=== PATIENT | male | born 1960 | race Caucasian/White ===

== ENCOUNTER 2020-06-11 07:33 | Outpatient (REF) | payer OTHER, SELFPAY | END 2020-06-11 07:34 | disposition home or self-care (01) | LOC: HO.LAB 07:33 | PROVIDERS: Visit Provider Internal Medicine | DX: Z20.822 Contact with and (suspected) exposure to COVID-19 (principal) | CPT/HCPCS: 36415; C9803; U0003 ==

== ENCOUNTER 2020-07-02 07:40 | Outpatient (REF) | payer OTHER, SELFPAY | END 2020-07-02 07:41 | disposition home or self-care (01) | LOC: HO.LAB 07:40 | PROVIDERS: PCP Student in an Organized Health Care Education/Training Program; Visit Provider Internal Medicine | DX: Z20.822 Contact with and (suspected) exposure to COVID-19 (principal) | CPT/HCPCS: 36415; C9803; U0003; U0005 ==

== ENCOUNTER 2020-09-17 08:35 | Outpatient (REF) | payer OTHER, SELFPAY ==
[2020-09-17 08:56] LABS: COVID-19 Test Negative (Negative)
== END 2020-09-17 08:36 | disposition home or self-care (01) ==
LOC: HO.LAB 08:35
PROVIDERS: Visit Provider Internal Medicine
DX: Z20.822 Contact with and (suspected) exposure to COVID-19 (principal)
CPT/HCPCS: 36415; 87635; C9803

== ENCOUNTER → 2022-08-07 14:54 | Outpatient (BNVA) | payer SELFPAY | PROVIDERS: PCP Student in an Organized Health Care Education/Training Program; Visit Provider Physician Assistant | DX: Z02.79 Encounter for issue of other medical certificate (principal) ==

== ENCOUNTER → 2023-09-15 12:58 | Outpatient (BNVA) | payer SELFPAY | PROVIDERS: PCP Student in an Organized Health Care Education/Training Program; Visit Provider Physician Assistant Medical | DX: Z02.79 Encounter for issue of other medical certificate (principal) ==

== ENCOUNTER 2023-11-30 10:35 | Outpatient (REF) | payer SELFPAY ==
[2023-11-30 14:30] LABS: Alanine Aminotransferase 30 U/L (0-40); Albumin Level 3.9 g/dL (3.5-5.0); Alkaline Phosphatase 50 U/L (39-117); Anion Gap 9 (12-20); Aspartate Amino Transferase 25 U/L (5-37); Bilirubin Direct 0.2 mg/dL (0.0-0.5); Bilirubin Total 0.5 mg/dL (0.0-1.0); Blood Urea Nitrogen 13 mg/dL (9-16); Calcium 8.8 mg/dL (8.4-10.2); Carbon Dioxide 26 mmol/L (22-29); Chloride 107 mmol/L (96-108); Cholesterol 122 mg/dL (<200); Estimated Glomerular Filt Rate > 60; Glucose Random 98 mg/dL (60-115); HDL Cholesterol 42 mg/dL (>40); LDL Cholesterol Calculated 72 mg/dL (<100); Potassium 4.3 mmol/L (3.3-5.1); Sodium 138 mmol/L (135-145); Triglycerides 42 mg/dL (<150)
== END 2023-11-30 10:36 | disposition home or self-care (01) ==
LOC: HO.CHCLDS 10:35
PROVIDERS: Visit Provider Student in an Organized Health Care Education/Training Program
DX: I10 Essential (primary) hypertension (principal); R60.0 Localized edema
CPT/HCPCS: 36415; 80048; 80061; 80076

== ENCOUNTER 2024-08-15 09:03 | Outpatient (REF) | payer OTHER, SELFPAY ==
--- OUTSIDE RECORDS SUMMARY | 2024-08-15 09:59 | XMS_ITS | Clinical Summary ---
Author Organization [facility] ity Address [address] [place] [address] Care Team Providers Care Sheep Farm Manager Name Role Phone Unavailable Primary Care Provider Unavailabl e Social History Tobacco Use Types Packs/Day Years Used Date Smoking Tobacco: Never Assessed Sex and Gender Information Value Date Recorded Sex Assigned at Not on file Legal Sex Male 3:13 PM EST Gender Identity Not on file Sexual Orientation Not on file Plan of Treatment Health Maintenance Due Date Last Done Comments DTaP,Tdap,and Td Vaccines (1 - Tdap) 1977 Pneumococcal Vaccine: 50+ Ye ars (1 of 1 - PCV) 2008 Zoster Vaccines (1 of 2) 2008 Abdominal Aortic Aneurysm (A AA) Screen 04/15/2022 Cholesterol Screening (Lipid Panel) 04/15/2022 Colorectal Cancer Screening: Colonoscopy 04/15/2022 Depression Screening 04/15/2022 Hepatitis C Screening 04/15/2022 Social Influencers of Health Screening 04/15/2022 Falls Risk Assessment 07/27/2023 COVID-19 Vaccine ( - 2023-2 5 season) 2024 Influenza Vaccine (#1) 2024 RSV Immunization Patients 60 + Years Old (1 - 1-dose 75+ series) 2033 HIB Vaccines Aged Out No longer eligi ble based on patient's age to complete this topic HPV Vaccines Aged Out No longer eligi ble based on patient's age to complete this topic Hepatitis A Vaccines Aged Out No long er eligible based on patient's age to complete this topic Hepatitis B Vaccines Aged Out No long er eligible based on patient's age to complete this topic IPV Vaccines Aged Out No longer eligi ble based on patient's age to complete this topic MMR Vaccines Aged Out No longer eligi ble based on patient's age to complete this topic Meningococcal ACWY Vaccine Aged Out N o longer eligible based on patient's age to complete this topic Meningococcal B Vacine Aged Out No lo nger eligible based on patient's age to complete this topic RSV Immunization Patients Un ross 20 months Aged Out No longer eligible b ased on patient's age to complete this topic Varicella Vaccines Aged Out No longer eligible based on patient's age to complete this topic
--- OUTSIDE RECORDS SUMMARY | 2024-08-15 09:59 | XMS_ITS | Encounter Summary ---
Author Organization [employer] Address [address] [facility] [address] [place] [address] Care Team Providers Care Professor Of Voice Name Role Phone Lorena Woody MD Primary Care Provider [phone] Encounter Details Date Type Department Care Team ([facility] st Contact Info) Description 09/28/2022 Orders Only [facility] & PEDS [address] [place] [address] Shanelle Daily LPN Social History Tobacco Use Types Packs/Day Years Used Date Smoking Tobacco: Never Assessed Sex and Gender Information Value Date Recorded Sex Assigned at Male 03/16/2022 10:29 AM EDT Legal Sex Male 10:29 AM EDT Gender Identity Male 03/16/2022 10:29 AM EDT Sexual Orientation Choose not to disclose 2021 10:29 AM EDT documented as of this encounter Plan of Treatment Not on file documented as of this encounter Visit Diagnoses Not on filedocumented in this encounter Care Teams Professor Of Voice Relationship Specialty Start Date End Date Lorena Woody MD [address] [place] [id number] PCP - General Family Medicine 10/03/15 documented as of this encounter
--- OUTSIDE RECORDS SUMMARY | 2024-08-15 09:59 | XMS_ITS | Encounter Summary ---
Author Organization [employer] Address [address] [facility] 7t [place] [address] Care Team Providers Care Weaving Teacher Name Role Phone Lorena Woody MD Primary Care Provider [phone] Reason for Visit * Reason Comments Annual Exam Encounter Details Date Type Department Care Team ([facility] st Contact Info) Description 08/15/2024 8:30 AM EDT Office Visit [facility] MED & PEDS [address] [place], [place] [phone] Lorena oWody MD [address] [place] [address] Primary hypertension (Primary Dx); Encounter for annual wellness visit Social History Tobacco Use Types Packs/Day Years Used Date Smoking Tobacco: Never Smokeless Tobacco: Never Tobacco Cessation:Counseling Given: Not Answered Alcohol Use Standard Drinks/Week Comments Never 0 (1 standard drink = 0.6 oz pur e alcohol) Depression Answer Date Recorded Patient Health Questionnaire-9 Score 6 11/30/2023 Patient Health Questionnaire-9 Score 6 11/30/2023 Last PHQ-9: Questionnaire Data Not on file 0 11/30/2023 Housing Stability Answer Date Recorded What is your housing situation today? I have gaurav figueredo 11/30/[address] you li ve. Do you have problems with any of the following? None of the above 11/30/2023 Food Insecurity Answer Date Recorded Within the past 12 months, y ou worried that your food would run out before you got money to buy more: Never True 11/30/2023 Within the past 12 months,th e food you bought just didn't last and you didn't have enough money to get more: Never True Transportation Answer Date Recorded In the past 12 months, has l ack of transportation kept you from medical appts, meetings, work or from getting things needed for daily living? No 11/30/2023 Utilities Answer Date Recorded In the past 12 months, has t he electric, gas, oil or water company threatened to shut off services in your home? No 11/30/2023 Depression Answer Date Recorded Patient Health Questionnaire-2 Score 3 11/30/2023 Internet Access Answer Date Recorded Internet Access Q1 No 08/15/2024 Internet Access Q2 I do not want or need it 05/2024 Sex and Gender Information Value Date Recorded Sex Assigned at Male 03/16/2022 10:29 AM EDT Legal Sex Male 10:29 AM EDT Gender Identity Male 03/16/2022 10:29 AM EDT Sexual Orientation Choose not to disclose 2021 10:29 AM EDT documented as of this encounter Last Filed Vital Signs Vital Sign Reading Time Taken Comments Blood Pressure 140/81 08/15/2024 8:52 AM EDT Pulse 75 08/15/2024 8:52 AM EDT Temperature 36.6 ??C (97.8 ??F) 08/15/2024 8:52 AM ED T Respiratory Rate 18 08/15/2024 8:52 AM EDT Oxygen Saturation - - Inhaled Oxygen Concentration - - Weight 70.3 kg (155 lb) 08/15/2024 8:52 AM EDT Height 164.5 cm (5' 4.75 ) 08/15/2024 8:52 AM ED T Body Mass Index 25.99 08/15/2024 8:52 AM EDT documented in this encounter Plan of Treatment Scheduled Orders Name Type Priority Associated Diagnoses Orde r Schedule Basic Metabolic Panel Lab Routine Primary hypertension Expected: 08/15/2024 (Approximate), Expires: 08/15/2025 Lipid Panel, Standard Lab Routine Primary hypertension Expected: 08/15/2024 (Approximate), Expires: 08/15/2025 Hepatic Function Panel Lab Routine Primary hypertension Expected: 08/15/2024 (Approximate), Expires: 08/15/2025 documented as of this encounter Visit Diagnoses Diagnosis Primary hypertension- Primary Unspecified essential hypertension Encounter for annual wellness visit documented in this encounter Additional Health Concerns Assessment Noted Time PHQ-9 Depression Total Score: 6 11/30/19 24 9:59 AM EDT documented as of this encounter Care Teams Weaving Teacher Relationship Specialty Start Date End Date Lorena Woody MD [address] [place] [id number] PCP - General Family Medicine 10/03/15 documented as of this encounter
--- OUTSIDE RECORDS SUMMARY | 2024-08-15 09:59 | XMS_ITS | Encounter Summary ---
Author Organization [employer] Address [address] [facility] [address] [place] [address] Care Team Providers Care Bioinformatics Developer Name Role Phone Lorena Woody MD Primary Care Provider [phone] Reason for Visit * Reason Onset Date Comments Chart prep 08/14/2024 Encounter Details Date Type Department Care Team ([facility] st Contact Info) Description 08/14/[address] [facility] MED & PEDS [address] [place], [place] [phone] Lorena Woody MD [address] [place] [address] Chart prep Social History Tobacco Use Types Packs/Day Years Used Date Smoking Tobacco: Never Smokeless Tobacco: Never Alcohol Use Standard Drinks/Week Comments Never 0 [...] AM EDT documented as of this encounter Miscellaneous Notes * Telephone Encounter - Danisha Zendejas [place] - 08/14/2024 11:00 AM EDT Chart Prep Labs: done Images: done Vaccines due: yes Referrals: complete Screenings: colonoscopy , STI screening Overdue care gaps: documented in this encounter Plan of Treatment Not on file documented as of this encounter Visit Diagnoses Not on filedocumented in this encounter Additional Health Concerns Assessment Noted Time PHQ-9 Depression Total Score: 6 11/30/19 24 9:59 AM EDT documented as of this encounter Care Teams Bioinformatics Developer Relationship Specialty Start Date End Date Lorena Woody MD [address] [place] [id number] PCP - General Family Medicine 10/03/15 documented as of this encounter
--- OUTSIDE RECORDS SUMMARY | 2024-08-15 09:59 | XMS_ITS | Encounter Summary ---
Author Organization [employer] Address [address] [facility] 7[address] [place] [address] Care Team Providers Care Tile And Marble Setter Name Role Phone Lorena Woody MD Primary Care Provider [phone] Encounter Details Date Type Department Care Team (Latest Contact Info) Description 08/15/2024 Travel Social History Tobacco Use Types Packs/Day Years [...] documented as of this encounter Care Teams Tile And Marble Setter Relationship Specialty Start Date End Date Lorena Woody MD [address] [place] [address] PCP - General Family Medicine 10/03/15 documented as of this encounter
--- OUTSIDE RECORDS SUMMARY | 2024-08-15 09:59 | XMS_ITS | Clinical Summary ---
Author Organization [employer] Address [address] [facility] [address]t [place] [address] Care Team Providers Care Corporate Training Manager Name Role Phone Lorena Woody MD Primary Care Provider [phone] Allergies No known active allergies Medications ibuprofen 800 MG tablet TAKE 1 TABLET BY MOUTH 3 TIMES DAILY. 90 tablet 4 Active lisinopril 20 MG tablet Take 1 tablet (20 mg) by mouth Once per day. 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 Assessment & Plan (10/14/2022 10:45 AM EDT): Patient with positive quantiferon test, cxr was negative, currently asymptomatic, will refer to tb clinic Encounters Date Type Department Care Team Description 08/15/2024 8:30 AM EDT Office Visit [facility] MED & PEDS [address] [place] [address] Lorena Woody MD Primary hypertension (Primary Dx); Encounter for annual wellness visit 08/15/2024 Travel 08/14/2024 Telephone [facility] MED & PEDS [address] [place] [address] Lorena Woody MD Chart prep 08/08/2024 Patient Outreach [facility] [address] [place], [place] [phone] Lorena Woody MD Pre-visit Planning (Pre visit planning unable to LVM ) 07/19/2024 Patient Outreach [facility] [address] [place] [address] Lornea Woody MD Pre-visit Planning (SDOH was completed on 06/06/2024) 06/28/2024 Refill [facility] & PED[facility] [address] [place] [address] Lorena Woody MD 06/14/2024 Patient Outreach [facility] [address] [place] [address] Lorena Woody MD Pre-visit Planning (SDOH was completed on 06/06/2024) 06/06/2024 Patient Outreach [facility] [address] [place] [address] Lorena Woody MD Pre-visit Planning (SDOH negative. Tobacco screening negative. ) from Last 3 Months Immunizations Name Administration Dates Next Due Influenza Injectable Quadriv alant Preservative Free IIV4 MDCK 04/14/2023 Tdap 09/28/2017 Social History Tobacco Use Types Packs/Day Years [...] not to disclose 2021 10:29 AM EDT Last Filed Vital Signs Vital Sign Reading [...] Mass Index 25.99 08/15/2024 8:52 AM EDT Plan of Treatment Health Maintenance Due Date Last Done Comments CT Colonography 1958 FIT DNA/Cologuard 1958 FIT 1958 FOBT 1960 Sigmoidoscopy 1958 Hepatitis C Screening 1976 Pneumococcal Vaccine: 50+ Years (1 of 1 - PCV) 2008 Zoster Vaccines (1 of 2) 2008 Colonoscopy 04/24/2024 04/24/2019 Colorectal Cancer Screening 04/24/2024 Influenza Vaccine (#1) 2024 3, 02/06/2022, 01/24/2021, Additional history exists Postponed from 01/16/2024 (Patient Refused) Alcohol/Substance Use Screening 11/29/2024 11/30/2023 Depression Screening 11/29/2024 11/30/2023, 11/30/19 COVID-19 Vaccine ( season) 2025 05/05/2021, 09/04/2020, 08/07/2020 Postponed from 01/16/2024 (Patient Refused) SDOH Screening 08/15/2025 08/15/2024 Tobacco Screening 08/15/2025 08/15/2024 DTaP/Tdap/Td Vaccines (2 - Td or Tdap) 09/29/2027 09/28/2017 Lipid Panel 11/29/2028 11/30/2023, 01/16, 07/22/2020 RSV Patients and Patients Aged 60 years or older (1 - 1-dose 75+ series) 2033 HIB [...] patient's age to complete this topic Meningococcal Vaccine Aged Out No noman haim eligible based on patient's age to complete this topic RSV under 20 months Aged Out No longe r eligible based on patient's age to complete this topic Rotavirus Vaccines Aged Out No longer eligible based on patient's age to complete this topic Procedures Procedure Name Priority Date/Time Associated Diagnosis Comments LIPID PANEL, STANDARD Routine 11/30/2023 12:00 AM EDT Primary hypertension Bilateral leg edema HM COLONOSCOPY Routine 04/24/2019 from Last 3 Months or Most Recently Relevant to Health Maintenance Results * Lipid Panel, Standard (11/30/2023 12:00 AM EDT) Triglycerides 42 <150 mg/dL [facility] Comment:Desirable Triglyceri de: less than 150 mg/dLBorderline High Triglyceride 150-199 mg/dLHigh Triglyceride: 200-499 mg/dLVery High Triglyceride: greater than or equal to 5OO mg/dL Cholesterol 122 <200 mg/dL [facility] Comment:Desirable Cholestero l: less than 200 mg/dLBorderline High Cholesterol: 200-239 mg/dLHigh Cholesterol: greater than 239 mg/dL LDL Cholesterol Calculated 72 <100 mg/dL [facility] Comment:Desirable LDL: less than 100 mg/dLNear Optimal/Above Optimal LDL: 110- 129 mg/dLBorderline High LDL: 130-159 mg/dLHigh LDL: 160-189 mg/dLVery High LDL: greater than or equal to 190 mg/dL HDL Cholesterol 42 >40 mg/dL [facility] Comment:Desirable HDL: great er than 40 mg/dL Note: This HDL assay may give artificially low results in patients with liver disease. Blood Venous blood specimen / Unknown 11/30/2023 11/30/2023 Lorena Woody MD LAB BLOOD ORDERABLES Final Resul t [facility] [address] [place] [phone] [phone] * Colonoscopy (04/24/2019) Colonoscopy Normal Normal Historical Provider HEALTH MAINTENANCE Final Result from Last 3 Months or Most Recently Relevant to Health Maintenance Insurance [facility] [id number] Care Teams Corporate Training Manager Relationship Specialty Start Date End Date Lorena Woody MD [address] [place] [id number] PCP - General Family Medicine 10/03/15
[2024-08-15 17:15] LABS: Alanine Aminotransferase 37 U/L (0-40); Alkaline Phosphatase 49 U/L (39-117); Anion Gap 8 (12-20); Aspartate Amino Transferase 46 U/L (5-37); Bilirubin Direct 0.3 mg/dL (0.0-0.5); Bilirubin Total 0.8 mg/dL (0.0-1.0); Blood Urea Nitrogen 22 mg/dL (9-16); Calcium 9.1 mg/dL (8.4-10.2); Carbon Dioxide 26 mmol/L (22-29); Chloride 108 mmol/L (96-108); Cholesterol 144 mg/dL (<200); Estimated Glomerular Filt Rate > 60; Glucose Random 87 mg/dL (60-115); HDL Cholesterol 46 mg/dL (>40); LDL Cholesterol Calculated 86 mg/dL (<100); Sodium 138 mmol/L (135-145); Total Protein 7.3 g/dL (6.5-8.0); Triglycerides 62 mg/dL (<150)
== END 2024-08-15 09:04 | disposition home or self-care (01) ==
LOC: HO.CHCLDS 09:03
PROVIDERS: Visit Provider Student in an Organized Health Care Education/Training Program
DX: I10 Essential (primary) hypertension (principal)
CPT/HCPCS: 36415; 80048; 80061; 80076

== ENCOUNTER 2025-01-17 08:03 | Outpatient (AMB) | payer OTHER, SELFPAY ==
--- NOTE | 2025-01-17 08:07 | A.OFFVIS_ITS ---
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 States his is locking when making a fist or with heavy lifting States this is painful. Patient states locking of his finger started about 3 weeks and has not improved. Denies numbness or tingling. States he would like to have an injection. Patient states he take medication for insomnia and is being well monitored by his doctor. Allergies No Known Allergies Allergy (Verified 01/17/25 08:15) HPI HPI RESEARCH PROGRAM COORDINATOR-Lt hand 4th digit trigger finger: Details: Shivam is a 64 year old right hand dominant man who presents for painful locking of his left ring finger. He complains of painful locking & catching of the left ring finger, onset ~3 weeks. He finds this occurring with heavy lifting or gripping activities. He denies any numbness or tingling. He denies any prior treatment options. 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 Review of Systems Const All systems reviewed & are unremarkable except as noted in HPI and below Physical Exam Vital Signs: BMI result Body Mass Index 25.8 Const General: cooperative, healthy appearing and no acute distress Orientation/consciousness: patient oriented x3 HEENT Head: Yes normocephalic and Yes atraumatic Eyes EOM: EOMs intact bilaterally Resp Effort & Inspection: normal respiratory effort and able to speak in complete sentences Cardio Jugular venous distension: no JVD Skin General skin exam: turgor normal Rashes: no rashes Neuro General: patient oriented x3 Extrem Other: Evaluation of Left Upper Extremity: The patient is alert, oriented, and in no acute distress Neuro: Median, Ulnar, Radial nerves motor and sensory intact and sensation is normal to the tips of all digits Vascular: Cap refill brisk ROM: He can make a fist and extend all his digits Visible & palpable locking & catching of the ring finger Tender over the ring finger a1 joana Skin: No lacerations or abrasions. General: No Ecchymosis. No Erythema or evidence of infection. Psych Appearance: grossly normal Affect: normal affect Attitude: cooperative Office Procedures AMB Fracture Care Details: No fracture, injection Fracture Billing Code: Fracture Billing Code Assessment & Plan Assessment & Plan (1) Trigger finger, left ring finger: Code(s): M65.342 - Trigger finger, left ring finger Category: Medical Plan Assessment & Plan: 1. Left ring finger trigger finger I educated him about this condition I discussed operative and non-operative treatment options The patient would like to proceed with an injection Injection #1: The risks and benefits of a steroid injection including but not limited to risk of damage to blood vessels, nerves, tendons, infection, skin bleaching, failure to improve symptoms, increased pain, and possible need for further injections or other intervention were discussed with the patient and the patient wishes to proceed with the steroid injection. Once consent was obtained, I sterilely prepped the area over the A1 joana of the flexor tendon sheath of the Left ring finger. I then injected the flexor tendon sheath with a combination of 1 mL of dexamethasone (4mg/ml), and 1% lidocaine. The patient tolerated the procedure well with no complications. If the patient continues to have locking and catching 4-6 weeks following this injection, they may call to schedule appointment to discuss alternative treatment options Follow-up prn Scribed for Mirian Mckenna MD by Stepan Wall medical device assembler, on 01/17/25 at 8:55 AM, EST. Coding Level of Care Code New Pt Level 4 (54738) Diagnoses Trigger finger, left ring finger M65.342 CPT Codes Fracture Care - Fracture Billing Code: Fracture Billing Code ([id number])
[2025-01-17 08:12] VITALS: BMI 25.8
--- OUTSIDE RECORDS SUMMARY | 2025-01-17 08:22 | XMS_ITS | Encounter Summary ---
Author Organization [employer] [facility] Address [address] [facility] 7t [place] [address] Care Team Providers Care Network Program Manager Name Role Phone Lorena Woody MD Primary Care Provider [phone] Encounter Details Date Type Department Care Team (Late st Contact Info) Description 09/28/2022 Orders Only [facility] MED & PEDS [address] [place] [address] Shanelle Daily LPN Social History Tobacco Use Types Packs/Day Years Used Date Smoking Tobacco: Never Assessed Sex and Gender Information Value Date Recorded Sex Assigned at Male 03/16/2022 10:29 AM EDT Legal Sex Male 10:29 AM EDT Gender Identity Male 03/16/2022 10:29 AM EDT Sexual Orientation Choose not to disclose 2021 10:29 AM EDT documented as of this encounter Plan of Treatment Upcoming Encounters Date Type Department Care Team (Late st Contact Info) Description 02/14/2025 8:30 AM EDT Office Visit [facility] PED[facility] [address] [place] [address] Lorena Woody MD [address] [place] [address] documented as of this encounter Visit Diagnoses Not on filedocumented in this encounter Care Teams Network Program Manager Relationship Specialty Start Date End Date Lorena Woody MD [address] [place] [phone] PCP - General Family Medicine 10/03/15 documented as of this encounter
--- OUTSIDE RECORDS SUMMARY | 2025-01-17 08:23 | XMS_ITS | Clinical Summary ---
Author Organization [employer] Address [address] [facility] 7[address] [place] [address] Care Team Providers Care Inspector [employer] Name Role Phone Lorena Woody MD Primary Care Provider [phone] Allergies No known active allergies Medications ibuprofen 800 MG tablet TAKE 1 TABLET BY MOUTH 3 TIMES DAILY. 90 tablet 08/12/2023 Active lisinopril 20 MG tablet Take 1 tablet (20 mg) by mouth Once per day. 90 tablet 3 08/15/2024 Active cetirizine (ZyrTEC) 10 MG tablet Take 1 tablet by mouth at bed time. 02/06/2022 Active hydrOXYzine HCl (Atarax) 50 MG tablet Take 1 tablet by mouth every 8 (eight) hours if needed for anxiety. 12/15/2024 Active Active Problems Problem Noted Date Diagnosed Date Trigger ring finger of left hand 12/20/2024 Assessment & Plan (12/20/2024 2:33 PM EDT): Patient reports a 3-week history of pain and locking in the fourth finger of his hand. Symptoms are consistent with trigger finger, characterized by the finger getting stuck in a bent position and causing pain when straightened. 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 Physical examination confirms the diagnosis of trigger finger, with palpable catching or locking of the affected digit. 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 Assessment & Plan (10/14/2022 10:45 AM EDT): Patient with positive quantiferon test, cxr was negative, currently asymptomatic, will refer to tb clinic Encounters Date Type Department Care Team Description 12/25/2024 Telephone [facility] MEDICINE [address] [facility] [place] [id number] Lorena Woody MD 12/24/2024 Results Follow-Up [facility] MED & PEDS [address] [place] [address] Lorena Woody MD XR Hand 3+ Views Left 12/22/2024 Telephone [facility] MED[facility] [address] [facility] [place] [phone] Lorena Woody MD Results 12/20/2024 2:00 PM EDT Office Visit [facility] MED [facility] PEDS [address] [place], [place] [phone] Sejal Gambino MD Trigger ring finger of left hand (Primary Dx) 12/20/2024 Travel 12/20/2024 Telephone [facility] [address] [place], [place] [phone] Lorena Woody MD Nurse Triage from Last 3 Months Immunizations Immunization Administration Dates Next Due Influenza Injectable Quadriv [...] Sign Reading Time Taken Comments Blood Pressure 140/80 12/20/2024 2:12 PM EDT Pulse 84 12/20/2024 2:12 PM EDT Temperature 37.1 C (98.8 F) 12/20/2024 2:12 PM EDT Respiratory Rate 20 12/20/2024 2:12 PM EDT Oxygen Saturation 98% 12/20/2024 2:12 PM EDT Inhaled Oxygen Concentration - - Weight 72.7 kg (160 lb 3.2 oz) 12/20/2024 2:12 P M EDT Height 166 cm (5' 5.35 ) 12/20/2024 2:12 PM EDT Body Mass Index 26.37 12/20/2024 2:12 PM EDT Plan of Treatment Upcoming Encounters Date Type Department Care Team (Late st Contact Info) Description 02/14/2025 8:30 AM EDT Office Visit [facility] PEDS [address] [place] [address] Lorena Woody MD [address] [place] [address] Health Maintenance Due Date Last Done Comments CT Colonography 1958 FIT DNA/Cologuard 1958 FIT 1958 FOBT 1958 Sigmoidoscopy 1958 Alcohol/Substance Use Screening 1970 Hepatitis C Screening 1976 Pneumococcal Vaccine: 50+ Years (1 of 1 - PCV) 2008 Zoster Vaccines (1 of 2) 2008 Colonoscopy 04/24/2024 04/24/2019 Colorectal Cancer Screening 04/24/2024 Depression Screening 11/29/2024 11/30/2023, 11/30/19 Influenza Vaccine (#1) 2025 3, 02/06/2022, 01/24/2021, Additional history exists COVID-19 Vaccine ( season) 2025 05/05/2021, 09/04/2020, 08/07/2020 Postponed from 01/16/2024 (Patient Refused) SDOH Screening 08/15/2025 08/15/2024 Tobacco Screening 12/20/2025 12/20/2024 DTaP/Tdap/Td Vaccines (2 - Td or Tdap) 09/29/2027 09/28/2017 Lipid Panel 08/15/2029 08/15/2024, 11/14, 02/06/2022, Additional history exists RSV Patients and Patients Aged 60 years [...] age to complete this topic Meningococcal B Vaccine Aged Out No l onger eligible based on patient's age to complete [...] Procedure Name Priority Date/Time Associated Diagnosis Comments XR HAND 3+ VIEWS LEFT Routine 12/20/2024 Trigger ring finger of left hand LIPID PANEL, STANDARD Routine 08/15/2024 9:08 AM EDT Primary hypertension HM COLONOSCOPY Routine 04/24/2019 from Last 3 Months or Most Recently Relevant to Health Maintenance Results * XR Hand 3+ Views Left (12/20/2024) Anatomical Region Laterality Modality Upper Extremities, Hand Left Radiogra phic Imaging us Sejal Gambino MD IMG XR PROCEDURES Final Resul t * Lipid Panel, Standard (08/15/2024 9:08 AM EDT) Triglycerides 62 <150 mg/dL [facility] Comment:Desirable Triglyceri de: less than 150 mg/dLBorderline High Triglyceride 150-199 mg/dLHigh Triglyceride: 200-499 mg/dLVery High Triglyceride: greater than or equal to 5OO mg/dL Cholesterol 144 <200 mg/dL [facility] Comment:Desirable Cholestero l: less than 200 mg/dLBorderline High Cholesterol: 200-239 mg/dLHigh Cholesterol: greater than 239 mg/dL LDL Cholesterol Calculated 86 <100 mg/dL [facility] Comment:Desirable LDL: less than 100 mg/dLNear Optimal/Above Optimal LDL: 110- 129 mg/dLBorderline High LDL: 130-159 mg/dLHigh LDL: 160-189 mg/dLVery High LDL: greater than or equal to 190 mg/dL HDL Cholesterol 46 >40 mg/dL [facility] Comment:Desirable HDL: great er than 40 mg/dL Note: This HDL assay may give artificially low results in patients with liver disease. Blood Venous blood specimen / Unknown 08/15/2024 9:08 AM EDT 08/15/2024 2:43 PM EDT us Lorena Woody MD LAB BLOOD ORDERABLES Final Resul t [facility] [address] [place] [phone] * Colonoscopy (04/24/2019) [facility] Colonoscopy Normal Normal Historical Provider HEALTH MAINTENANCE Final Result from Last 3 Months or Most Recently Relevant to Health Maintenance Insurance [facility] [employer] Care Teams Inspector [employer] Relationship Specialty Start Date End Date Lorena Woody MD [address] [place] [phone] PCP - General Family Medicine 10/03/15
--- OUTSIDE RECORDS SUMMARY | 2025-01-17 08:23 | XMS_ITS | Encounter Summary ---
Author Organization [employer] Address [address] [facility] [address]t [place] [address] Care Team Providers Care Machine Filler Shredder Name Role Phone Lorena Woody MD Primary Care Provider [phone] Encounter Details Date Type Department Care Team (Late st Contact Info) Description 12/25/2024 Telephone [facility] MEDICINE [address] [place] [address] Lorena Woody MD [address] [place] [address] Social History Tobacco Use Types Packs/Day Years [...] is your housing situation today? I have gauravjuhi figueredo 11/30/[address] you [...] Description 02/14/2025 8:30 AM EDT Office Visit [facility]S [address] [place] [address] Lorena Woody MD [address] [place] [address] documented as of this encounter Visit Diagnoses Not on filedocumented in this encounter Additional Health Concerns Assessment Noted Time PHQ-9 Depression Total Score: 6 11/30/19 24 9:59 AM EDT documented as of this encounter Care Teams Machine Filler Shredder Relationship Specialty Start Date End Date Lorena Woody MD [address] [place] [phone] PCP - General Family Medicine 10/03/15 documented as of this encounter
--- OUTSIDE RECORDS SUMMARY | 2025-01-17 08:23 | XMS_ITS | Clinical Summary ---
Author Organization [facility] Address [address] [place] [address] Phone Care Team Providers Care Atmospheric Physics Professor Name Role Phone Sejal Gambino MD Primary Care Provider [phone] Encounters Date Type Department Care Team Description 12/20/2024 3:15 PM EDT - 12/20/2024 11:59 PM EDT Hospital Encounter [facility] Xray [address] [place] [address] Trigger finger, left ring finger Discharge Disposition: Home or Self Care from Last 3 Months Social History Tobacco Use Types Packs/Day Years Used Date Smoking Tobacco: Never Assessed Sex and Gender Information Value Date Recorded Sex Assigned at Not on file Legal Sex Male 3:13 PM EST Gender Identity Not on file Sexual Orientation Not on file Plan of Treatment Health Maintenance Due Date Last Done Comments Pneumococcal Vaccine: 50+ Years (1 of 1 - PCV) 2008 Zoster Vaccines (1 of 2) 2008 Colorectal Cancer Screening: Colonoscopy 04/15/2022 Hepatitis C Screening 04/15/2022 Social Influencers of Health Screening 04/15/2022 Falls Risk Assessment 07/27/2023 COVID-19 Vaccine ( season) 2024 05/05/2021, 09/04/2020, 08/07/2020 Depression Screening 05/17/2024 Hypertension/CHF/CAD Annual BMP Blood Test 12/21/2024 Influenza Vaccine (#1) 2025 3, 02/06/2022, 01/24/2021, Additional history exists DTaP,Tdap,and Td Vaccines (2 - Td or Tdap) 09/29/2027 09/28/2017 Cholesterol Screening (Lipid Panel) 08/15/2029 08/15/2024 RSV Immunization Adult Patients (1 - 1-dose 75+ series) 2033 HIB [...] to complete this topic RSV Immunization Patients Under 20 months Aged Out No longer eligible based on patient's age to complete this topic Varicella Vaccines Aged Out No longer eligible based on patient's age to complete this topic Procedures Procedure Name Priority Date/Time Associated Diagnosis Comments XR HAND 3+ VIEWS LEFT Routine 12/20/2024 3:28 PM EDT Trigger finger, left ring finger from Last 3 Months Results * XR Hand 3+ Views Left (12/20/2024 3:28 PM EDT) Anatomical Region Laterality Modality Upper Extremities, Hand Left Radiogra phic Imaging 12/21/2024 7:37 AM EDT Impressions 12/21/2024 7:38 AM EDT Normal examination. Code 75367 -------- FINAL REPORT -------- Dictated By: Davin Nayak Dictated Date: 12/21/2024 07:37 ET Assigned Physician: Davin Nayak Reviewed and Electronically Signed By: Davin Nayak Signed Date: 12/21/2024 07:38 ET Workstation ID: [id number] Transcribed By: Self Edit Transcribed Date: 12/21/2024 07:37 ET Narrative 12/21/2024 7:38 AM EDT HISTORY: The patient is a 64-year-old male with left hand pain. No history of trauma is provided. FINDINGS: AP, lateral, and oblique views of the left hand are obtained. The study demonstrates no fracture, dislocation, arthritic change, or other bony abnormality. No soft tissue abnormality is seen. Procedure Note Davin Nayak MD - 12/21/2024 HISTORY: The patient is a 64-year-old male with left hand pain. No historyof trauma is provided. FINDINGS: AP, lateral, and oblique views of the left hand are obtained.The study demonstrates no fracture, dislocation, arthritic change, orother bony abnormality. No soft tissue abnormality is seen. IMPRESSION: Normal examination. Code 92375 -------- FINAL REPORT -------- Dictated By: Davin Nayak Dictated Date: 12/21/2024 07:37 ET Assigned Physician: Davin Nayak Reviewed and Electronically Signed By: Davin Nayak Signed Date: 12/21/2024 07:38 ET Workstation ID: [id number] Transcribed By: Self Edit Transcribed Date: 12/21/2024 07:37 ET Sejal Gambino MD IMG XR PROCEDURES Final Resul t from Last 3 Months Insurance [id number] [place] [address] [facility] Care Teams Atmospheric Physics Professor Relationship Specialty Start Date End Date Sejal Gambino MD [address] [place] [id number] PCP - General Family Medicine 12/20/24
== END 2025-01-17 09:21 | disposition home or self-care (01) ==
LOC: HO.HOS 08:03
PROVIDERS: PCP Student in an Organized Health Care Education/Training Program; Visit Provider Orthopaedic Surgery
DX: M65.342 Trigger finger, left ring finger (principal)
CPT/HCPCS: 20550; 99203

== ENCOUNTER → 2025-01-17 08:03 | Outpatient (BNVA) | payer OTHER, SELFPAY | PROVIDERS: PCP Student in an Organized Health Care Education/Training Program; Visit Provider Orthopaedic Surgery | DX: M65.342 Trigger finger, left ring finger (principal) | CPT/HCPCS: 20550; 99202; J1100; J2003 ==